=== PATIENT | male | born 1955 | race Caucasian/White ===

== ENCOUNTER 2018-12-01 12:16 | Outpatient (CLI) | payer OTHER | END 2018-12-01 12:23 | disposition home or self-care (01) | LOC: LAB 12:16 | DX: R10.32 Left lower quadrant pain (principal) ==

== ENCOUNTER 2018-12-03 07:26 | Outpatient (CLI) | payer OTHER | END 2018-12-03 07:37 | disposition home or self-care (01) | LOC: TOM 07:26 | DX: R10.32 Left lower quadrant pain (principal); K57.30 Diverticulosis of large intestine without perforation or abscess without bleeding ==

== ENCOUNTER 2019-01-04 06:41 | Outpatient (CLI) | payer OTHER | END 2019-01-04 07:27 | disposition home or self-care (01) | LOC: LAB 06:41 | DX: R74.0 Nonspecific elevation of levels of transaminase and lactic acid dehydrogenase [LDH] (principal) ==

== ENCOUNTER 2021-05-17 07:28 | Outpatient (CLI) | payer OTHER | END 2021-05-17 07:31 | disposition home or self-care (01) | LOC: NUCLEAR 07:28 | PROVIDERS: ATTEND Internal Medicine Cardiovascular Disease | DX: I20.8 Other forms of angina pectoris (principal) | CPT/HCPCS: 78452; 93017; A9500 ==